=== PATIENT | female | born 1965 | race American Indian/Alaskan Native ===

== ENCOUNTER 2016-11-17 15:32 | Emergency (ER) | payer OTHER ==
[2016-11-17] MEDS ORDERED: CATAPRES PO ONE ×2 (16:58→17:00)
--- NOTE | 2016-11-17 17:22 | Cat Scan Report ---
FINAL REPORT PROCEDURE: CT HEAD/BRAIN WO CON TECHNIQUE: Computerized tomography of the head was performed without contrast material. HISTORY: Headache COMPARISON: No prior studies are available for comparison. FINDINGS: Mild mucosal thickening is seen in the ethmoid air cells. Visualized portions of the mastoid air cells are clear. No calvarial fracture is seen. Cerebral ventricles are normal in size. No acute intracranial hemorrhage or mass effect is seen. No CVA is seen. IMPRESSION: Mild changes of chronic sinusitis are seen without evidence of acute abnormality.
--- NOTE | 2016-11-17 19:53 | Emergency Department Report ---
Chief Complaint: Headache Stated Complaint: HEAD HURTING/INSOMNIA X 4 DAYS Time Seen by Provider: 11/17/16 19:46 - HPI History of Present Illness: PT states she came to the ED because she has not been able to sleep x 4 days. PT states she developed a headache today. PT states she came to ED and was told her bp was elevated. PT states she was given a pill and she is feeling better. - ROS Review of Systems: - cp, sob or palpitations + headache - resolved no n/v/d - Exam Vital Signs: Vital Signs 11/17/16 11/17/16 16:48 17:05 Temperature 98.8 F Pulse Rate 80 80 Respiratory 20 Rate Blood Pressure 178/114 161/101 O2 Sat by Pulse 100 Oximetry Physical Exam: PT looks well, non toxic. pt in no acute distress gcs 15 steady gait MSE screening note: Focused history and physical exam performed. Due to findings the following was ordered: labs - refused by pt ED Disposition for MSE Condition: Stable
--- NOTE | 2016-11-17 22:11 | Emergency Department Report ---
Entered by MADIE JONES, acting as scribe for EMELIA CHAMBERLAIN PA. ED Headache HPI - General Chief Complaint: Headache Stated Complaint: HEAD HURTING/INSOMNIA X 4 DAYS Time Seen by Provider: 11/17/16 19:46 Source: patient Exam Limitations: no limitations - History of Present Illness Initial Comments: 51 year old female with no pertinent PMHx presents to the ED for evaluation of mild headache to base of skull that began yesterday. She reports pain resolved after administration of Clonidine in the ED after triage. Denies PMHx HTN, head trauma or recent falls, vision changes, nausea, and vomiting. Patient also c/o insomnia x 4 days. She reports she typically sleeps 10-12 hours a day but claims she has not had any sleep over the past 4 days. Patient notes her work schedule recently changed from day shifts to overnight shifts. Timing/Duration: 24 hours Quality: mild, constant, pressure Head Injury Location: other (base of skull) Recent Head Trauma: no recent headache/trauma Modifying Factors: improves with: medication (resolved after Clonidine in triage ) Associated Symptoms: fatigue, other (insomnia x 4 days). denies: fever/chills, loss of consciousness, nausea/vomiting, nasal congestion, nasal drainage, numbness in legs/feet, rash, stiff neck, vision changes, weakness Allergies/Adverse Reactions: Allergies Penicillins Adverse Reaction (Verified 06/30/14 09:09) Unknown Home Medications: Ambulatory Orders ALBUTEROL Inhaler [ProAir HFA Inhaler] 2 puff IH QID PRN #1 inhalation 02/12/14 Azithromycin [Zithromax TAB] 500 mg PO QDAY #5 tablet 02/12/14 oxyCODONE /ACETAMINOPHEN [Percocet 5/325] 1 tab PO Q6HR PRN #6 tablet 02/12/14 diphenhydrAMINE [Benadryl] 25 mg PO Q6HR PRN #15 capsule 06/30/14 Doxylamine Succinate [Unisom] 25 mg PO QHS #30 tablet 11/17/16 Triamter/Hctz 37.5-25 mg [Maxzide-25] 1 tab PO QDAY #30 tablet 11/17/16 ED Review of Systems Comment: All other systems reviewed and negative Constitutional: denies: chills, fever Eyes: denies: vision change ENT: denies: congestion (rhinorrhea, sinus infection symptoms) Gastrointestinal: denies: nausea, vomiting Musculoskeletal: denies: other (neck stiffness) Skin: denies: rash Neurological: headache. denies: weakness, numbness, paresthesias, other (LOC, head trauma) Psychiatric: other (insomnia) ED Past Medical Hx - Past Medical History Hx Hypertension: Yes (no current treatment) - Surgical History Hx Cholecystectomy: Yes Additional Surgical History: Back surgery 10 years ago. Knee Surgery - Social History Smoking Status: Never Smoker Substance Use Type: None - Medications Home Medications: Home Medications Medication Instructions Recorded Confirmed Last Taken Type ALBUTEROL Inhaler [ProAir HFA 2 puff IH QID PRN #1 inhalation 02/12/14 Unknown Rx Inhaler] Azithromycin [Zithromax TAB] 500 mg PO QDAY #5 tablet 02/12/14 Unknown Rx oxyCODONE /ACETAMINOPHEN [Percocet 1 tab PO Q6HR PRN #6 tablet 02/12/14 Unknown Rx 5/325] diphenhydrAMINE [Benadryl] 25 mg PO Q6HR PRN #15 capsule 06/30/14 Unknown Rx Doxylamine Succinate [Unisom] 25 mg PO QHS #30 tablet 11/17/16 Unknown Rx Triamter/Hctz 37.5-25 mg 1 tab PO QDAY #30 tablet 11/17/16 Unknown Rx [Maxzide-25] ED Physical Exam - General Limitations: No Limitations - Other Other exam information: GENERAL: Patient is alert and oriented x 3. No apparent distress, normal gait, atraumatic. HEAD: Head is normocephalic and atraumatic. EYES: Extraocular movements are intact. Pupils are equal, round, and reactive to light and accommodation. NOSE: Nose symmetrical, nontender. Nares appeared normal. MOUTH:Mouth is well hydrated and without lesions. Mucous membranes are moist. Uvula midline. Tongue not elevated. Posterior pharynx clear, no exudate or lesions. Tonsils are not erythematous or swollen. Patent airway. NECK: Supple. Non edematous, no carotid bruits. No lymphadenopathy or thyromegaly. LUNGS: Symmetrical with respiration. No wheezing, rales or crackles, CTAB. HEART: Regular rate and rhythm with normal S1/S2 present. No murmurs, rubs, or gallops. SKIN: Warm and dry. No lesions, ulceration or induration present NEUROLOGIC: No focal deficit. Cranial nerves II - XII are grossly intact. No loss of sensation. No facial droop. Negative romberg. PSYCHIATRIC: Mood is congruent with affect. ED Course Vital Signs 11/17/16 11/17/16 16:48 17:05 Temperature 98.8 F Pulse Rate 80 80 Respiratory 20 Rate Blood Pressure 178/114 161/101 O2 Sat by Pulse 100 Oximetry ED Medical Decision Making - Medical Decision Making 51-year-old female presents with a insomnia. ED course: Patient received clonidine in ED. Blood pressure reduced while in the ED. Patient states she has a history of hypertension and does not take medication for hypertension. Discussed the patient she will need blood pressure medications to reduce her blood pressure and keep it controlled. Discussed to follow up with her primary care physician or primary care referrals as given. Patient states she had a tension headache earlier today by its gone now. Patient states she has no symptoms no headaches no blurry vision pain no chest pain. She refuses blood work. She also denies fevers/chills/nausea/vomiting/ abdominal pain/shortness of breath/dizziness/weakness or any other problems. Scars the patient elevated blood pressure less than control can lead to CVA, worse defect. Discussed the patient needs to follow up with primary care for blood pressure management. Patient was sent home with a blood pressure medication and Unisom for sleep. Vital signs are stable blood pressure reduced ED. Patient understands all that was discussed and states she will take medication as prescribed and follow up with primary care doctor as soon as possible ED Disposition Clinical Impression: Elevated blood pressure, Uncontrolled hypertension Insomnia Qualifiers: Insomnia type: other insomnia Qualified Code(s): G47.09 - Other insomnia Disposition: DISCHARGED TO HOME OR SELFCARE Is pt being admited?: No Does the pt Need Aspirin: No Condition: Stable Instructions: Insomnia (ED), Doxylamine (By mouth), Hypertension (ED), Low Sodium Diet (ED), Chronic Hypertension (ED) Prescriptions: Doxylamine Succinate [Unisom] 25 mg PO QHS #30 tablet Triamter/Hctz 37.5-25 mg [Maxzide-25] 1 tab PO QDAY #30 tablet Referrals: EILEEN ASTUDILLO MD [Primary Care Provider] - 3-5 Days EGORGE MORROW MD [Referring] - 3-5 Days ZEENAT FULLER MD [Referring] - 3-5 Days CARLOS MCCOY MD [Referring] - 3-5 Days [facility] [Outside] - 3-5 Days [facility] [Outside] - 3-5 Days Forms: Work/School Release Form(ED) Time of Disposition: 21:20 This documentation as recorded by the KAREN boyd REBEKAH,accurately reflects the service I personally performed and the decisions made by ,EMELIA CHAMBERLAIN PA.
[2016-11-17 22:19] VITALS: BP 153/98
== END 2016-11-17 22:22 | disposition home or self-care (01) ==
LOC: ED 15:32
DX: I10 Essential (primary) hypertension (principal); G47.09 Other insomnia
CPT/HCPCS: 70450; 99283

== ENCOUNTER 2017-10-01 16:06 | Emergency (ER) | payer OTHER ==
[2017-10-01 17:15] VITALS: BP 150/83
--- NOTE | 2017-10-01 19:32 | Emergency Department Report ---
- General Chief Complaint: Upper Respiratory Infection Stated Complaint: COUGH Time Seen by Provider: 10/01/17 19:25 Source: patient Mode of arrival: Ambulatory Limitations: No Limitations - History of Present Illness Initial Comments: Patient stated that she is having cough with greenish sputum for the last 6 days. Patient denied any chest pain or shortness of breath. No nausea or vomiting or diarrhea. MD Complaint: cough -: week(s) (1 week) Severity: moderate - Related Data Previous Rx's Medication Instructions Recorded Last Taken Type ALBUTEROL Inhaler [ProAir HFA 2 puff IH QID PRN #1 inhalation 02/12/14 Unknown Rx Inhaler] Azithromycin [Zithromax TAB] 500 mg PO QDAY #5 tablet 02/12/14 Unknown Rx oxyCODONE /ACETAMINOPHEN [Percocet 1 tab PO Q6HR PRN #6 tablet 02/12/14 Unknown Rx 5/325] diphenhydrAMINE [Benadryl] 25 mg PO Q6HR PRN #15 capsule 06/30/14 Unknown Rx Doxylamine Succinate [Unisom] 25 mg PO QHS #30 tablet 11/17/16 Unknown Rx Triamter/Hctz 37.5-25 mg 1 tab PO QDAY #30 tablet 11/17/16 Unknown Rx [Maxzide-25] Allergies Allergy/AdvReac Type Severity Reaction Status Date / Time Penicillins AdvReac Unknown Verified 06/30/14 09:09 ED Review of Systems ROS: Stated complaint: COUGH Other details as noted in HPI ED Past Medical Hx - Past Medical History Previous Medical History?: No Hx Hypertension: Yes (no current treatment) - Surgical History Hx Cholecystectomy: Yes Additional Surgical History: Back surgery 10 years ago. Knee Surgery. hysterectomy - Social History Smoking Status: Never Smoker Substance Use Type: None - Medications Home Medications: Home Medications Medication Instructions Recorded Confirmed Last Taken Type ALBUTEROL Inhaler [ProAir HFA 2 puff IH QID PRN #1 inhalation 02/12/14 Unknown Rx Inhaler] Azithromycin [Zithromax TAB] 500 mg PO QDAY #5 tablet 02/12/14 Unknown Rx oxyCODONE /ACETAMINOPHEN [Percocet 1 tab PO Q6HR PRN #6 tablet 02/12/14 Unknown Rx 5/325] diphenhydrAMINE [Benadryl] 25 mg PO Q6HR PRN #15 capsule 06/30/14 Unknown Rx Doxylamine Succinate [Unisom] 25 mg PO QHS #30 tablet 11/17/16 Unknown Rx Triamter/Hctz 37.5-25 mg 1 tab PO QDAY #30 tablet 11/17/16 Unknown Rx [Maxzide-25] ED Physical Exam - General Limitations: No Limitations General appearance: alert, in no apparent distress - Head Head exam: Present: atraumatic, normocephalic - ENT ENT exam: Present: normal exam - Neck Neck exam: Present: normal inspection, full ROM. Absent: tenderness - Respiratory Respiratory exam: Present: normal lung sounds bilaterally. Absent: respiratory distress, wheezes, rales, rhonchi, chest wall tenderness, accessory muscle use, decreased breath sounds, prolonged expiratory - Cardiovascular Cardiovascular Exam: Present: regular rate, normal rhythm, normal heart sounds - GI/Abdominal GI/Abdominal exam: Present: soft, normal bowel sounds. Absent: distended, tenderness, guarding, rebound, rigid, organomegaly, mass, bruit, pulsatile mass - Extremities Exam Extremities exam: Present: normal inspection, full ROM, normal capillary refill - Neurological Exam Neurological exam: Present: alert, oriented X3, CN II-XII intact, normal gait - Skin Skin exam: Present: warm, intact, normal color. Absent: cyanosis, diaphoretic, erythema ED Course Vital Signs 10/01/17 17:11 Temperature 98.5 F Pulse Rate 116 H Respiratory 16 Rate Blood Pressure 150/83 O2 Sat by Pulse 99 Oximetry Critical care attestation.: If time is entered above; I have spent that time in minutes in the direct care of this critically ill patient, excluding procedure time. ED Disposition Clinical Impression: Acute bronchitis Disposition: DC-01 TO HOME OR SELFCARE Is pt being admited?: No Condition: Stable Instructions: Acute Bronchitis (ED)
== END 2017-10-01 19:40 | disposition home or self-care (01) ==
LOC: ED 16:06
DX: J20.9 Acute bronchitis, unspecified (principal); I10 Essential (primary) hypertension; Z88.0 Allergy status to penicillin
CPT/HCPCS: 99282

== ENCOUNTER 2018-03-08 14:13 | Emergency (ER) | payer OTHER ==
[2018-03-08 14:25] VITALS: BP 127/92
--- NOTE | 2018-03-08 19:33 | Emergency Department Report ---
ED General Adult HPI - General Chief complaint: Upper Respiratory Infection Stated complaint: CAMPOS Time Seen by Provider: 03/08/18 19:28 Source: patient Mode of arrival: Ambulatory Limitations: No Limitations - History of Present Illness Initial comments: 52-year-old -[place] female comes in complaining of a dry cough that she 's had for 6 months. Patient reports that she is taking a Z-Oneal and Robitussin- AC Tessalon Perles and none were eased her cough. Patient reports that the cough keeps her up at night. Patient denies any shortness of breathing no fever no chills no nausea no vomiting. She reports that she's had a chest x- ray which was normal at her primary care provider which she goes to [facility]. Patient denies any orthopnea no lower leg edema she has a past medical history of hypertension. She is allergic to penicillin. -: month(s) (6) Consistency: intermittent Improves with: none Worsens with: other (with air) Associated Symptoms: cough. denies: fever/chills, headaches, loss of appetite, nausea/vomiting Treatments Prior to Arrival: none - Related Data Previous Rx's Medication Instructions Recorded Last Taken Type ALBUTEROL Inhaler [ProAir HFA 2 puff IH QID PRN #1 inhalation 02/12/14 Unknown Rx Inhaler] Azithromycin [Zithromax TAB] 500 mg PO QDAY #5 tablet 02/12/14 Unknown Rx oxyCODONE /ACETAMINOPHEN [Percocet 1 tab PO Q6HR PRN #6 tablet 02/12/14 Unknown Rx 5/325] diphenhydrAMINE [Benadryl] 25 mg PO Q6HR PRN #15 capsule 06/30/14 Unknown Rx Doxylamine Succinate [Unisom] 25 mg PO QHS #30 tablet 11/17/16 Unknown Rx Triamter/Hctz 37.5-25 mg 1 tab PO QDAY #30 tablet 11/17/16 Unknown Rx [Maxzide-25] Azithromycin [Zithromax Z-ONEAL] 250 mg PO DAILY 1 Days tab 10/01/17 Unknown Rx guaiFENesin/CODEINE [Robitussin AC] 10 ml PO TID PRN #100 ml 10/01/17 Unknown Rx Levocetirizine Dihydrochloride 5 mg PO QDAY #30 tablet 03/08/18 Unknown Rx [Xyzal] Montelukast [Singulair] 10 mg PO QPM #30 tablet 03/08/18 Unknown Rx Allergies Allergy/AdvReac Type Severity Reaction Status Date / Time Penicillins AdvReac Unknown Verified 03/08/18 14:25 ED Review of Systems ROS: Stated complaint: CAMPOS Other details as noted in HPI Constitutional: denies: chills, fever Eyes: denies: eye pain, eye discharge, vision change ENT: denies: ear pain, throat pain Respiratory: cough. denies: shortness of breath, SOB with exertion Cardiovascular: denies: chest pain, dyspnea on exertion, edema Genitourinary: denies: urgency, dysuria, discharge ED Past Medical Hx - Past Medical History Previous Medical History?: Yes Hx Hypertension: Yes (no current treatment, denies) - Surgical History Past Surgical History?: Yes Hx Cholecystectomy: Yes Additional Surgical History: Back surgery 10 years ago. Knee Surgery. hysterectomy - Social History Smoking Status: Never Smoker Substance Use Type: None - Medications Home Medications: Home Medications Medication Instructions Recorded Confirmed Last Taken Type ALBUTEROL Inhaler [ProAir HFA 2 puff IH QID PRN #1 inhalation 02/12/14 Unknown Rx Inhaler] Azithromycin [Zithromax TAB] 500 mg PO QDAY #5 tablet 02/12/14 Unknown Rx oxyCODONE /ACETAMINOPHEN [Percocet 1 tab PO Q6HR PRN #6 tablet 02/12/14 Unknown Rx 5/325] diphenhydrAMINE [Benadryl] 25 mg PO Q6HR PRN #15 capsule 06/30/14 Unknown Rx Doxylamine Succinate [Unisom] 25 mg PO QHS #30 tablet 11/17/16 Unknown Rx Triamter/Hctz 37.5-25 mg 1 tab PO QDAY #30 tablet 11/17/16 Unknown Rx [Maxzide-25] Azithromycin [Zithromax Z-ONEAL] 250 mg PO DAILY 1 Days tab 10/01/17 Unknown Rx guaiFENesin/CODEINE [Robitussin AC] 10 ml PO TID PRN #100 ml 10/01/17 Unknown Rx Levocetirizine Dihydrochloride 5 mg PO QDAY #30 tablet 03/08/18 Unknown Rx [Xyzal] Montelukast [Singulair] 10 mg PO QPM #30 tablet 03/08/18 Unknown Rx ED Physical Exam - General Limitations: No Limitations General appearance: alert, in no apparent distress - Head Head exam: Present: atraumatic, normocephalic - Eye Eye exam: Present: EOMI - ENT ENT exam: Present: mucous membranes moist - Neck Neck exam: Present: normal inspection, full ROM. Absent: lymphadenopathy - Respiratory Respiratory exam: Present: normal lung sounds bilaterally. Absent: respiratory distress - Cardiovascular Cardiovascular Exam: Present: regular rate, normal rhythm. Absent: systolic murmur, diastolic murmur, rubs, gallop - GI/Abdominal GI/Abdominal exam: Present: soft, normal bowel sounds - Extremities Exam Extremities exam: Present: full ROM. Absent: pedal edema - Neurological Exam Neurological exam: Present: alert, oriented X3 - Psychiatric Psychiatric exam: Present: normal affect, normal mood ED Course Vital Signs 03/08/18 14:22 Temperature 98.4 F Pulse Rate 96 H Respiratory 18 Rate Blood Pressure 127/92 O2 Sat by Pulse 98 Oximetry ED Medical Decision Making - Medical Decision Making Patient has been evaluated by this provider fast track. Discussed patient with monokleloise and levocetirizine. Discussed the patient and refer her to a cast associate. Patient verbalizes understanding Critical care attestation.: If time is entered above; I have spent that time in minutes in the direct care of this critically ill patient, excluding procedure time. ED Disposition Clinical Impression: Chronic cough Disposition: DC-01 TO HOME OR SELFCARE Is pt being admited?: No Does the pt Need Aspirin: No Condition: Stable Instructions: Antitussive/Expectorant (By mouth), Chronic Cough (ED) Additional Instructions: Please take medications as prescribed. Please follow-up with the cast associate as they're able to do more extensive testing and evaluation for your chronic cough. Prescriptions: Levocetirizine Dihydrochloride [Xyzal] 5 mg PO QDAY #30 tablet Montelukast [Singulair] 10 mg PO QPM #30 tablet Referrals: PRIMARY CARE, [Primary Care Provider] - 3-5 Days AI MCGHEE MD [Staff Physician] - 3-5 Days Forms: Work/School Release Form(ED)
== END 2018-03-08 19:52 | disposition home or self-care (01) ==
LOC: ED 14:13
DX: G89.29 Other chronic pain (principal); R05 Cough; I10 Essential (primary) hypertension; Z90.49 Acquired absence of other specified parts of digestive tract; Z90.710 Acquired absence of both cervix and uterus; Z88.0 Allergy status to penicillin
CPT/HCPCS: 99282

== ENCOUNTER 2018-12-18 10:27 | Emergency (ER) | payer OTHER ==
[2018-12-18 10:54] VITALS: BP 135/89
[2018-12-18] MEDS ORDERED: DECADRON IM ONE (11:34)
--- NOTE | 2018-12-18 11:36 | Emergency Department Report ---
Minor Respiratory - HPI Chief Complaint: Sore Throat Stated Complaint: SORE THROAT Time Seen by Provider: 12/18/18 11:34 Duration: 3 Days Pain Location: Throat Severity: mild Minor Respiratory: Yes Sore Throat, Yes Able to Tolerate Fluids, No Rhinorrhea, No Ear Pain, No Cough, No Sick Contacts, No Hemoptysis, No Chest Pain, No Shortness of Breath, No Fever Other History: She is a 53-year-old female comes to the ER today complaining of throat pain for several days[place] She does have lymphadenopathy. There is no abscess. ABCs are intact. She is taking by mouth. She has no fever. ED Review of Systems ROS: Stated complaint: SORE THROAT Other details as noted in HPI Comment: All other systems reviewed and negative ED Past Medical Hx - Past Medical History Previous Medical History?: Yes Hx Hypertension: Yes (no current treatment, denies) - Surgical History Past Surgical History?: Yes Hx Cholecystectomy: Yes Additional Surgical History: Back surgery 10 years ago. Knee Surgery. hysterectomy - Social History Smoking Status: Current Every Day Smoker Substance Use Type: None - Medications Home Medications: Home Medications Medication Instructions Recorded Confirmed Last Taken Type Azithromycin [Zithromax Z-HODA] 250 mg PO DAILY #6 tablet 12/18/18 Unknown Rx Cetirizine HCl [ZyrTEC] 10 mg PO DAILY #30 capsule 12/18/18 Unknown Rx Minor Respiratory Exam - Exam General: Vital signs noted. No distress. Alert and acting appropriately. HEENT: Yes Pharyngeal Erythema, Yes Pharyngeal Exudates, Yes Moist Mucous Membranes, No Rhinorrhea, No Conjuctival Injection, No Frontal Tenderness, No Maxillary Tenderness Ear: Neither TM Bulge, Neither TM Erythema, Neither EAC Pain, Neither EAC Discharge Neck: Yes Adenopathy, Yes Supple Lungs: Yes Good Air Exchange, No Wheezes, No Ronchi, No Stridor, No Cough, No Labored Respirations, No Retractions, No Use of Accessory Muscles Heart: Yes Regular, No Murmur Abdomen: Yes Normal Bowel Sounds, No Tenderness, No Peritoneal Signs Skin: No Rash, No Edema Neurologic: Alert and oriented, no deficits. Musculoskeletal: Unremarkable. ED Course Vital Signs 12/18/18 10:52 Temperature 98 F Pulse Rate 86 Respiratory 16 Rate Blood Pressure 135/89 O2 Sat by Pulse 98 Oximetry ED Medical Decision Making - Medical Decision Making simple pharyngitis VSS no fever ABC intact allergy to PCN medicated with decadron for pain dc home with dc plan of care Vital Signs (72 hours) 12/18/18 10:52 Temperature 98 F Pulse Rate 86 Respiratory 16 Rate Blood Pressure 135/89 O2 Sat by Pulse 98 Oximetry Critical care attestation.: If time is entered above; I have spent that time in minutes in the direct care of this critically ill patient, excluding procedure time. ED Disposition Clinical Impression: Pharyngitis Disposition: DC-01 TO HOME OR SELFCARE Is pt being admited?: No Does the pt Need Aspirin: No Condition: Stable Instructions: Pharyngitis (ED) Additional Instructions: DIET TOLERATED MEDS ORDERED TODAY IN ER FOLLOW INSTRUCTIONS ON THE BOTTLE FOLLOW UP PCP WITHIN 48 HOURS TO ENSURE YOU ARE GETTING BETTER ACTIVITY TOLERATED MOTRIN OR TYLENOL FOR PAIN OR FEVER RETURN TO THE ER FOR WORSENING SYMPTOMS NOT RELIEVED BY YOUR MEDICATIONS. Prescriptions: Azithromycin [Zithromax Z-HODA] 250 mg PO DAILY #6 tablet Cetirizine HCl [ZyrTEC] 10 mg PO DAILY #30 capsule Referrals: PRIMARY CARE, [Primary Care Provider] - 3-5 Days [facility] [place] [Outside] - 3-5 Days Time of Disposition: 11:34
== END 2018-12-18 12:11 | disposition home or self-care (01) ==
LOC: ED 10:27
DX: J02.9 Acute pharyngitis, unspecified (principal); I10 Essential (primary) hypertension; F17.200 Nicotine dependence, unspecified, uncomplicated
CPT/HCPCS: 96372; 99282; J1100